=== PATIENT | female | born 1965 | race Caucasian/White ===

== ENCOUNTER → 2019-11-21 10:18 | Outpatient (CLI) | payer OTHER, SELFPAY ==
[2019-11-21 12:40] LABS: Color, Urine Amber (Yellow); Glucose, Dipstick Normal (Normal); Ketone-Dipstick 5 mg/dl (Negative); Leukocyte Esterase-Dipstick Negative /ul (Negative); Nitrite-Dipstick Negative (Negative); Occult Blood-Urine Negative /ul (Negative); Protein-Dipstick 15 mg/dl (Negative); Specific Gravity, Urine 1.025 (1.002-1.030); Urine Bilirubin Dipstick Negative (Negative); Urine Clarity Clear (Clear); Urine Urobilinogen Normal (Normal)
[2019-11-21 12:42] LABS: Absolute Neutrophil Count 4.2 X10^3/uL (2.0-7.7); Basophil# 0.06 X10^3/uL; Eosinophil# 0.15 X10^3/uL; Eosinophils% 2.5 % (0-5); Hematocrit 42.4 % (37-47); Hemoglobin 13.2 g/dL (12.0-15.0); Lymphocyte % 16.8 % (19-41); Mean Corp Hgb Conc 31.1 g/dL (32-36); Mean Corpuscular Hgb 26.1 pg (27.0-32.0); Mean Platelet Vol. 10.3 fl (6.2-12.0); Monocyte# 0.51 X10^3/uL; Monocyte% 8.5 % (0-10); NRBC Flagged by Analyzer 0 % (0-5); Neutrophil # 4.22 X10^3/uL (2.7-7.7); Neutrophil % 70.7 % (47-70); Platelet Count 351 K/mm3 (150-450); RBC Distribution Width CV 13.9 % (11.6-14.6); RBC Distribution Width SD 42.5 fl (35.1-43.9); Red Blood Count 5.05 M/mm3 (4.2-5.4)
[2019-11-21 13:32] LABS: Protein, Urine (Random) 16.5 mg/dL (<11.9); Protein:Creat Ratio 70 mg/g CRE (0-200)
[2019-11-21 13:43] LABS: Hepatitis B Surface Antibody Non-Reactive; Hepatitis B Surface Antigen Non-Reactive (Nonreactive); Hepatitis C Antibody Non-Reactive (Nonreactive)
[2019-11-21 14:28] LABS: ALB/GLOB Ratio 1.1 RATIO (0.9-2.4); AST(SGOT) 31 U/L (15-37); Alanine Aminotransfer ALT/SGPT 72 U/L (13-56); Albumin, Serum 4.3 g/dL (3.2-5.0); Alkaline Phosphatase 154 U/L (45-117); Anion Gap 9 (5-15); BUN 15 mg/dL (7-18); BUN/Creat Ratio 17.6 RATIO (10-20); Calcium,Total 9.9 mg/dL (8.5-10.1); Chloride 104 mmol/L (98-107); Creatinine, Serum 0.85 mg/dL (0.55-1.02); EST Glomerular Filtration Rate 74 mL/min (>60); Est Glom Filt Rate - Afr Amer 89 mL/min (>60); Glucose 93 mg/dL (74-106); Potassium 4.1 mmol/L (3.5-5.1); Protein, Total 8.3 g/dL (6.4-8.2); Rheumatoid Factor < 10.0 IU/mL (<15); Sodium Level 138 mmol/L (136-145)
[2019-11-23 20:07] LABS: Complement C3 166 mg/dL (82-167)
[2019-11-25 09:56] LABS: CCP IgG Antibodies 9 units (0-19); Hepatitis B Core AB IgM Negative (Negative)
== END ==
PROVIDERS: PCP Internal Medicine; Referring Provider Internal Medicine Rheumatology; Visit Provider Internal Medicine Rheumatology
DX: M06.4 Inflammatory polyarthropathy (principal); M79.7 Fibromyalgia; I47.1 Supraventricular tachycardia; F32.9 Major depressive disorder, single episode, unspecified
CPT/HCPCS: 36415; 80053; 81002; 82570; 84156; 85025; 86160; 86200; 86431; 86705; 86706; 86803; 87340

== ENCOUNTER → 2019-12-25 07:47 | Outpatient (CLI) | payer OTHER, SELFPAY ==
--- NOTE | 2019-12-25 07:49 | US_ITS ---
STUDY: ABDOMINAL ULTRASOUND - RIGHT UPPER QUADRANT REASON FOR VISIT: Female, 54 years old ELEVATED LIVER ENZYMES TECHNIQUE: Ultrasound evaluation of the right upper quadrant was performed with real-time and static lechuga-scale imaging. TECHNICAL QUALITY: Adequate. COMPARISON: None. FINDINGS: Liver: The liver measures 16.5 cm. There is increased echogenicity consistent with fatty infiltration. The bile ducts are within normal limits. There is hepatic color flow. The direction of portal flow is hepatopetal. There is no demonstrated mass lesion. Gallbladder: Normal distended gallbladder. The gallbladder wall measures 2.3 mm. There is a negative sonographic Worley''s sign. There is no pericholecystic fluid. There are no gallstones. Common Bile Duct (C.B.D.): The common bile duct measures 6.0 mm. Pancreas: Normal size of the head, body and tail of the pancreas. There is normal echogenicity of the pancreas. There is no demonstrated pancreatic mass or cyst. Right Kidney: Normal size of the right kidney. The right kidney measures 11.2 cm x 5.8 cm x 4.5 cm. Normal renal cortex. The right cortex measures 1.2 cm. There is no demonstrated renal mass or cyst. There is no right hydronephrosis. US/Liver IMPRESSION: Fatty infiltration of the liver. Electronically Signed: Bautista Haas, at 12:40 EST , Service support ,
== END ==
PROVIDERS: PCP Internal Medicine; Referring Provider Internal Medicine Rheumatology; Visit Provider Internal Medicine Rheumatology
DX: M06.4 Inflammatory polyarthropathy (principal); M79.7 Fibromyalgia; I47.1 Supraventricular tachycardia; F32.9 Major depressive disorder, single episode, unspecified
CPT/HCPCS: 76705

== ENCOUNTER → 2023-04-09 | Outpatient (CLI) | payer OTHER, SELFPAY ==
--- NOTE | 2023-04-09 07:34 | ECHOD_ITS ---
Reason For Study: ARRHYTHMIA Procedure This was a 2D Doppler, Color Flow transthoracic echocardiogram. Exam performed in department. Left Ventricle Normal LV size. Left ventricular systolic function is normal. The estimated ejection fraction is 60 %. No regional wall motion abnormalities noted. Right Ventricle Normal RV size. Normal systolic function. Atria Normal left atrium. Mitral Valve Normal mitral valve. Tricuspid Valve Normal tricuspid valve. Mild (1+) tricuspid valve insufficiency. Pulmonary artery systolic pressure is 32 mmHg. Aortic Valve Normal aortic valve. Pulmonic Valve Normal pulmonic valve. Great Vessels Normal aortic root. Pericardium/Pleural No pericardial effusion. MMode/2D Measurements & Calculations LVIDd: 4.4 cm IVSd: 1.1 cm Ao root diam: 2.9 cm LVIDs: 3.0 cm LVPWd: 1.1 cm RVDd: 2.5 cm FS: 32.1 % LAV(MOD-bp): 65.2 ml LVAd ap4: 26.7 cm2 LVAd ap2: 19.0 cm2 LAV(MOD-bp) Indexed: 33.0 ml/m2 LVLd ap4: 7.3 cm LVLd ap2: 6.2 cm LAV(MOD-sp2): 61.5 ml EDV(MOD-sp4): 78.8 ml EDV(MOD-sp2): 48.9 ml LAV(MOD-sp4): 61.4 ml EDV(sp4-el): 82.5 ml EDV(sp2-el): 49.1 ml LVAs ap4: 13.5 cm2 LVAs ap2: 11.3 cm2 LVLs ap4: 5.7 cm LVLs ap2: 5.9 cm ESV(MOD-sp4): 26.2 ml ESV(MOD-sp2): 19.3 ml ESV(sp4-el): 27.1 ml ESV(sp2-el): 18.3 ml EF(MOD-sp4): 66.7 % EF(MOD-sp2): 60.4 % EF(sp4-el): 67.2 % SV(MOD-sp4): 52.5 ml SV(MOD-sp2): 29.6 ml SV(sp4-el): 55.4 ml LA dimension(2D): 3.5 cm LA A4 area: 18.6 cm2 RA A4 area: 12.3 cm2 Doppler Measurements & Calculations Ao V2 max: 126.9 cm/sec LV V1 max: 92.9 cm/sec PA V2 max: 90.9 cm/sec Ao max P.4 mmHg LV V1 max P.5 mmHg PA V2 mean: 67.9 cm/sec Ao V2 mean: 91.4 cm/sec LV V1 mean P.8 mmHg Ao mean P.8 mmHg LV V1 mean: 63.1 cm/sec Ao V2 VTI: 27.3 cm LV V1 VTI: 18.5 cm AV (velocity ratio): 0.68 TR max isis: 270.5 cm/sec TR max P.3 mmHg
== END | disposition home or self-care (01) ==
LOC: CVS 07:33
PROVIDERS: PCP Internal Medicine; Referring Provider Internal Medicine Cardiovascular Disease; Visit Provider Internal Medicine Cardiovascular Disease
DX: I47.1 Supraventricular tachycardia (principal)
CPT/HCPCS: 93225; 93226; 93306

== ENCOUNTER 2023-05-24 10:44 | Day surgery (SDC) | payer OTHER, SELFPAY ==
[2023-05-16 12:51] LABS: Absolute Lymphocyte Count 1.55 X10^3/uL (0.83-4.51); Absolute Neutrophil Count 3.2 X10^3/uL (2.0-7.7); Basophil# 0.05 X10^3/uL; Basophil% 0.9 % (0-1); Eosinophil# 0.16 X10^3/uL; Hemoglobin 12.3 g/dL (12.0-15.0); Lymphocyte # 1.55 X10^3/ul (0.83-4.51); Lymphocyte % 29.2 % (19-41); Mean Corp Hgb Conc 32.4 g/dL (32-36); Mean Corpuscular Hgb 26.7 pg (27.0-32.0); Mean Corpuscular Volume 82.6 fL (81-99); Mean Platelet Vol. 10.2 fl (6.2-12.0); Monocyte# 0.31 X10^3/uL; Monocyte% 5.8 % (0-10); NRBC Flagged by Analyzer 0 % (0-5); Neutrophil # 3.22 X10^3/uL (2.7-7.7); Neutrophil % 60.9 % (47-70); Platelet Count 285 K/mm3 (150-450); RBC Distribution Width CV 14.6 % (11.6-14.6); RBC Distribution Width SD 43.7 fl (35.1-43.9); White Blood Count 5.3 K/mm3 (4.4-11.0)
[2023-05-16 13:03] LABS: International Normalized Ratio 1.1; Prothrombin Time (Protime)PT. 14.1 SECONDS (11.7-14.9)
[2023-05-16 13:11] LABS: Anion Gap 5 (5-15); BUN 13 mg/dL (7-18); BUN/Creat Ratio 13.2 RATIO (10-20); Calcium,Total 9.2 mg/dL (8.5-10.1); Chloride 106 mmol/L (98-107); Creatinine, Serum 0.99 mg/dL (0.55-1.02); EST Glomerular Filtration Rate 62 mL/min (>60); Est Glom Filt Rate - Afr Amer 74 mL/min (>60); Glucose 93 mg/dL (74-106); Potassium 3.8 mmol/L (3.5-5.1); Sodium Level 139 mmol/L (136-145)
--- NOTE | 2023-05-16 16:27 | PCM.HP.BLA ---
History and Physical Date of Admission: 05/24/23 57-year-old lady with no previous cardiac history but occasional palpitations who presented for initial evaluation in March 2023. She says that she has been having occasional palpitations and lightheadedness 2-3 times a week. She does have an Apple Watch and has had some readings on it which demonstrated a tachycardia. She does not know what brings it on but she says that vagal maneuvers are sometimes effective for relief of the above. She will occasionally also gets lightheaded. She did have an echocardiogram in November 2019 demonstrating preserved ejection fraction and a Holter monitor for a week demonstrating sinus rhythm with occasional ectopic atrial rhythm. She also had a coronary calcium score which was noted to be 23.7. She has had no luna syncopal episodes she has been compliant with her medications which are noncardiac. Her physical exam here today is unremarkable. Her electrocardiogram on 03/26/2023 demonstrated sinus rhythm with a rate of 79 bpm no acute changes and her Apple Watch recording demonstrates a narrow complex tachycardia which appears to be a short RP tachycardia with a rate of 150 bpm. Intake Vital Signs: See EMR Intake Visit Reasons: EP study/Ablation Medical Records Assistant Required: No Accompanied by: None Is patient in pain?: No Allergies No Known Allergies Allergy (Unverified 03/26/23 09:58) Medications See EMR [facility] Medical History Carpal tunnel syndrome Depression Fatigue Fatty liver GERD (gastroesophageal reflux disease) Debra's disease Hyperlipidemia Hypothyroid Liver hemangioma Myositis Polyarthropathy, inflammatory PSVT (paroxysmal supraventricular tachycardia) Thyroid nodule Trigger finger of left thumb Surgical History History of colonoscopy Family History Father CAD (coronary artery disease) Social History Smoking Status: Never smoker alcohol intake: never caffeine: Yes ROS Const Const: Negative for fatigue, weakness, headache(s), frequent falls, difficulty sleeping or excessive sweating Eyes Eyes: Negative for loss of peripheral vision, transient loss of vision, blurry vision, double vision or tunnel vision ENT ENT: Negative for headache(s), dizziness, Nosebleed/epistaxis or balance problems Cardio Chest Pain: No Palpitations: Yes Edema: None Muscle aches with walking: None Resp Respiratory: Negative for SOB with activity, SOB at rest, SOB orthopnea\SOB lying down, Cough or paroxysmal nocturnal dyspnea GI GI: Negative nausea, vomiting or heartburn : Negative for hematuria Musc Musc: Negative for muscle aches/ myalgia, muscle weakness, joint pain or balance problems Skin Skin: Negative non-healing lesions, rash or unusual bruising Neuro Neuro: Positive for lightheadedness; Negative for dizziness, near syncope, syncope, orthostatic symptoms, frequent falls, headache(s), weakness, confusion, memory loss, blurry vision, double vision, vertigo or lack of coordination Wili Hematologic/Lymphatic: Negative for easy bleeding or easy bruising Endo Endo: Negative for fatigue, excessive sweating, flushing or increased thirst/drinking Psych Psych: Negative for anxiety or depression Allergy Allergy/Immunology: Negative for hives and Negative for rash Cardiology Exam Const Appearance: cooperative, healthy appearing, no acute distress, well developed and well groomed Nutritional Appearance: average body habitus and well nourished Orientation: alert, awake and oriented x3 Head Head: normal to inspection, normocephalic and atraumatic Ears: hearing grossly normal bilaterally and external ears normal Nose: external nose normal, nares normal, nasal mucous membranes and turbinates normal, septum normal and no nasal discharge Face and Sinus: face symmetric Mouth: oral mucosae normal, tongue normal, oropharynx normal and moist mucous membranes Teeth and gingiva: dentition normal Throat: posterior oropharynx normal, tonsils normal and uvula midline Eyes General: appearance normal, both eyes and all related structures Eyelids: eyelids normal Conjunctivae: conjunctivae normal Pupils: PERRL, normal by confrontation and accommodation normal EOM: EOM intact bilaterally Neck Neck: normal visual inspection, trachea midline and no JVD JVD: +5 Carotids: normal carotid upstroke and bounding pulses Chest Chest inspection: normal inspection of the chest, symmetric chest movement and normal respiratory effort Auscultation: Bilateral: Clear to Auscultation Cardio Palpation: normal PMI Rate: regular rate Rhythm: regular rhythm Heart sounds: S1 normal, S2 normal and normal, physiologic split S2; Negative rub, gallop or murmur GI GI: normal to inspection, soft, no hepatosplenomegaly and bowel sounds present Neuro General: patient alert, patient awake, patient oriented x3, gait normal, moves all extremities and no focal sensory deficit Skin Skin: no rashes or lesions noted Extremities Pulses: Normal: Right Femoral Pulse, Left Femoral Pulse, Right Dorsalis Pedis Pulse, Left Dorsalis Pedis Pulse, Right Posterior Tibial Pulse, Left Posterior Tibial Pulse, Right Radial Pulse and Left Radial Pulse Lower Extremity Edema: None: Bilateral Musculoskel Musculoskeletal: No joint tenderness Psych Psychological: normal affect Supplemental Info Echocardiogram from 04/09/2023: Interpretation Summary Normal LV size. Left ventricular systolic function is normal. The estimated ejection fraction is 60 %. Pulmonary artery systolic pressure is 32 mmHg. Structurally normal valves. Echocardiogram 11/11/19 Physician Interpretation: Left Ventricle: The left ventricular systolic function is normal. There are no regional wall motion abnormalities. The left ventricular cavity size is normal. Spectral Doppler shows a normal pattern of left ventricular diastolic filling. Left Atrium: The left atrium is normal in size. Right Ventricle: The right ventricle is normal in size. There is normal right ventricular global systolic function. Right Atrium: The right atrium is normal in size. Aortic Valve: The aortic valve is trileaflet. There is no evidence of aortic valve regurgitation. The peak instantaneous gradient of the aortic valve is 5.0 mmHg. Mitral Valve: The mitral valve is normal in structure. There is no evidence of mitral regurgitation. Tricuspid Valve: The tricuspid valve is structurally normal. There is trace tricuspid regurgitation. Pulmonic Valve: The pulmonic valve is not well visualized. There is physiologic pulmonic valve regurgitation. Pericardium: There is no pericardial effusion noted. Aorta: The aortic root is normal. There is no dilatation of the descending abdominal aorta. Systemic Veins: The inferior vena cava appears to be of normal size. There is IVC inspiratory collapse greater than 50%. Conclusions: 1. The left ventricular systolic function is normal Ambulatory Heart Monitor 11/11/19 - 11/15/19 Findings Summary: - Predominant rhythm: NSR - Ectopic Atrial Rhythm CT Cardiac Scoring 09/28/21 Impression: 1. Coronary artery calcium score of 23.7. 2. Severe fatty change in the liver. CT scanning of the abdomen recommended to rule out a possible liver nodule. 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 I think this would be amenable to an ablation. She underwent repeat echocardiogram on 04/09/2023 that showed trace fraction of 60%. I have discussed this with her. The risk benefits alternatives have been explained to her she understands and agrees to proceed.
[2023-05-23 08:42] VITALS: BMI 31.4
--- NOTE | 2023-05-24 13:00 | ELECTROSTU_ITS ---
Electrophysiology Report Electrophysiology Report The patient is a 57-year-old woman who is a symptoms of palpitations and noted to have a heart rate of about 150 on her Apple Watch. There is no other documentation of a tacky arrhythmia. She is referred for electrophysiology evaluation. She arrived to the electrophysiology laboratory in sinus rhythm. After informed consent the right and left groin were prepped and draped in usual sterile manner. Intermittent boluses of Versed and fentanyl were used for sedation and analgesia as well as intravenous heparin was administered. Ultrasound-guided access of the right femoral vein was achieved and using the Seldinger technique a 12 Australian Tri-Port was inserted in the right femoral vein. Through the 12 Australian Tri-Port or 4 Australian diagnostic electrophysiology catheter was placed in the high right atrium and the second 1 was placed in the right ventricle. A deflectable 5 Australian steerable catheter was placed in the hiss region. Programmed stimulation of the atrium and ventricle were then it was then completed in the baseline state as well as during Isuprel infusion. The baseline values are sinus cycle length of 820, AH of 6 0, HV of 5 5, maximum sinus node recovery time is 1130, corrected sinus node recovery time is 310, the AV block cycle length is 370, the VA block cycle length was 350. There is both antegrade and retrograde decremental conduction with concentric conduction. There is no preexcitation. The AV node effective refractory period at a drive cycle length of 600 ms is 220 ms. There is no AV lis jump no AV lis echo beats no AV lis dual AV node physiology. The VA ERP is 220 at 600 and the VA ERP is [address] of 600 there is no inducible tachycardia. Isuprel was then infused at 3 micrograms per minute. Programmed stimulation of the atrium and ventricle were repeated during the Isuprel infusion. The sinus cycle length was 520 the AH was 45 the HV V is 50 the AV block cycle length is 268 the VA block cycle length is 280 there is decremental antegrade and retrograde conduction. The AV node effective refractory period was less than [address] cycle length of 450 atrial S3 was then tested until there was a block in the AV node. The VA effective refractory period was less than [address] cycle length of 450 S3 was added to the ventricular stimulation until there is a retrograde VA block with extrastimuli. Burst pacing was then completed in the high right atrium and the ventricle at various cycle lengths there is no inducible tachycardia. There is no evidence of an accessory pathway there is no dual AV node physiology during Isuprel infusion. Conclusion normal electrophysiology study in the baseline state as well as during Isuprel infusion. No inducible tachycardia and no evidence of an accessory pathway no evidence of dual AV node physiology. The patient's symptoms continue I suggest a 30-day auto trigger event monitor for better identification of the tachyarrhythmia. Heart rate of 150 for her may also represent sinus tachycardia.
== END 2023-05-24 16:28 | disposition home or self-care (01) ==
LOC: CLSP 10:48
PROVIDERS: Internal Medicine Cardiovascular Disease; PCP Internal Medicine; Referring Provider Internal Medicine Cardiovascular Disease; Visit Provider Internal Medicine Cardiovascular Disease
DX: I47.1 Supraventricular tachycardia (principal); K21.9 Gastro-esophageal reflux disease without esophagitis; E03.9 Hypothyroidism, unspecified; K76.0 Fatty (change of) liver, not elsewhere classified; Z79.899 Other long term (current) drug therapy
CPT/HCPCS: 36415; 76937; 80048; 85025; 85610; 93620; 93623; 99152; 99153; C1730; C1894; J7040